=== PATIENT | male | born 1985 | race Caucasian/White ===

== ENCOUNTER 2016-08-19 16:20 | Emergency (ER) | payer OTHER ==
[2016-08-19 17:02] LABS: BASOPHIL 0.5 % (0-2); EOSINOPHIL 2.9 % (0-5); HCT 47.5 % (42.0-52.0); HGB 16.9 g/dl (13.2-18.0); LYMPHOCYTE 48.5 % (15-48); MCH 31.9 pg (25.0-31.0); MCHC 35.6 g/dL (32.0-36.0); MCV 89.6 fL (78.0-100.0); MONOCYTE 11.4 % (0-12); NEUTROPHIL 36.7 % (41-80); PLT 177 K/uL (150-400); RDW 12.6 % (11.5-14.0); WBC 5.8 K/uL (4.0-10.5)
[2016-08-19 17:03] LABS: BILIRUBIN NEGATIVE (NEGATIVE); BLOOD NEGATIVE Ery/uL (NEGATIVE); CLARITY CLEAR (CLEAR); COLOR STRAW (YELLOW); GLUCOSE (U) NORMAL (NORMAL); KETONE (U) NEGATIVE (NEGATIVE); LEUKOCYTES NEGATIVE Leu/uL (NEGATIVE); NITRITE NEGATIVE (NEGATIVE); PROTEIN NEGATIVE (NEGATIVE); UROBILINOGEN 0.2 mg/dL (0.2-1.0); pH 7.5 (5.0-9.0)
[2016-08-19 17:10] LABS: AMPHETAMINES NEGATIVE (NEGATIVE); BARBITURATES NEGATIVE (NEGATIVE); BENZODIAZEPINES NEGATIVE (NEGATIVE); COCAINE NEGATIVE (NEGATIVE); MARIJUANA (THC) POSITIVE (NEGATIVE); METHADONE NEGATIVE (NEGATIVE); TRICYCLIC ANTIDEPRESSANT NEGATIVE (NEGATIVE)
[2016-08-19 17:14] LABS: CREATININE 0.9 mg/dL (0.7-1.2); POTASSIUM 3.8 mmol/L (3.5-5.1)
== END 2016-08-19 18:19 | disposition home or self-care (01) ==
LOC: FER 16:20
PROVIDERS: Emergency Medicine
DX: R10.84 Generalized abdominal pain (principal); R11.0 Nausea; M54.9 Dorsalgia, unspecified; F17.210 Nicotine dependence, cigarettes, uncomplicated; Z80.0 Family history of malignant neoplasm of digestive organs; Z87.19 Personal history of other diseases of the digestive system
CPT/HCPCS: 36415; 80048; 80305; 81003; 85025; 87804; 87899

== ENCOUNTER 2020-11-27 19:29 | Emergency (ER) | payer OTHER ==
[2020-11-27] MEDS ORDERED: DICLOFENAC SODI75 MG PO (20:38)
[2020-11-27] MEDS ORDERED: BACTRIM DS TAB1 EACH PO (20:38)
== END 2020-11-27 20:13 | disposition home or self-care (01) ==
LOC: FER 19:29
DX: L02.416 Cutaneous abscess of left lower limb (principal); F17.210 Nicotine dependence, cigarettes, uncomplicated

== ENCOUNTER 2020-12-26 20:26 | Emergency (ER) | payer OTHER ==
[~2020-12-26 20:26] MED LIST: BACTRIM DS TAB1 EACH PO; DICLOFENAC SODI75 MG PO
[2020-12-26] MEDS ORDERED: CEPHALEXIN500 M1 PO (22:06)
== END 2020-12-26 22:39 | disposition home or self-care (01) ==
LOC: FER 20:26
DX: R59.0 Localized enlarged lymph nodes (principal); F17.200 Nicotine dependence, unspecified, uncomplicated
CPT/HCPCS: 99283